=== PATIENT | male | born 1990 | race Caucasian/White ===

== ENCOUNTER 2024-10-20 16:49 | Emergency (ER) | payer MEDICAID ==
[~2024-10-20] VITALS: Ht 167.6 cm; Wt 82.0 kg
[2024-10-20 16:52] VITALS: BP 162/89; PULSE 110; RESP 20; TEMP 37.4; O2SAT 100
== END 2024-10-20 19:42 | disposition left against medical advice (07) ==
LOC: ER 16:49
DX: M79.672 Pain in left foot (principal); Z53.21 Procedure and treatment not carried out due to patient leaving prior to being seen by health care provider